=== PATIENT | female | born 1945 | race Two or more races ===

== ENCOUNTER 2020-07-09 11:41 | Emergency (ER) | payer MEDICARE, MEDICAID ==
[~2020-07-09] VITALS: Ht 154.9 cm; Wt 65.8 kg
[2020-07-09] MEDS ORDERED: cloNIDine HCL 0.1 MG TAB ONE (12:00)
[2020-07-09] MEDS ORDERED: cloNIDine HCL 0.1 MG TAB PO ONE (12:00)
[2020-07-09 13:21] VITALS: BP 145/70
== END 2020-07-09 13:39 | disposition home or self-care (01) ==
LOC: ER 11:41
DX: G51.0 Bell's palsy (principal); D32.0 Benign neoplasm of cerebral meninges; E11.9 Type 2 diabetes mellitus without complications; E78.5 Hyperlipidemia, unspecified; I10 Essential (primary) hypertension; Z87.891 Personal history of nicotine dependence
CPT/HCPCS: 70450